=== PATIENT | male | born 1985 | race Caucasian/White ===

== ENCOUNTER 2018-09-05 16:46 | Emergency (ER) | payer OTHER ==
[~2018-09-05] VITALS: Ht 190.5 cm; Wt 99.3 kg
[2018-09-05 17:02] VITALS: Ht 190.5 cm; Wt 99.3 kg
[2018-09-05 19:11] VITALS: BP 130/84
== END 2018-09-05 19:11 | disposition home or self-care (01) ==
LOC: ED 16:46
DX: S68.122A Partial traumatic metacarpophalangeal amputation of right middle finger, initial encounter (principal); W23.0XXA Caught, crushed, jammed, or pinched between moving objects, initial encounter; Y93.89 Activity, other specified; Y92.89 Other specified places as the place of occurrence of the external cause; Y99.8 Other external cause status
CPT/HCPCS: J0696; J2001; Q0092

== ENCOUNTER 2018-10-20 12:22 | Emergency (ER) | payer OTHER ==
[~2018-10-20] VITALS: Ht 188 cm; Wt 98.5 kg
[2018-10-20 12:38] VITALS: BP 135/80; Ht 188 cm; Wt 98.5 kg
== END 2018-10-20 13:27 | disposition home or self-care (01) ==
LOC: ED 12:22
DX: S68.112D Complete traumatic metacarpophalangeal amputation of right middle finger, subsequent encounter (principal); X58.XXXD Exposure to other specified factors, subsequent encounter